=== PATIENT | male | born 1980 | race Caucasian/White ===

== ENCOUNTER 2016-12-01 08:54 | Outpatient (CLI) | payer BC ==
[2016-12-01] VITALS (7 sets, daily range): BP systolic 100–126; BP diastolic 64–92; PULSE 59–71; TEMP 97.9
[~2016-12-01] VITALS: Ht 180.3 cm; Wt 75.3 kg
[~2016-12-01 08:54] MED LIST: FLEXERIL 1010 MG/TAB PO; PERCODAN PO
[2016-12-01] MEDS ORDERED: PERCOCET 325 MG1 TA2 PO (09:12)
== END 2016-12-01 12:26 | disposition home or self-care (01) ==
LOC: COL.RAD 08:54
DX: M51.26 Other intervertebral disc displacement, lumbar region (principal)
CPT/HCPCS: Q9965